=== PATIENT | male | born 1965 | race Asian ===

== ENCOUNTER 2024-05-07 23:04 | Emergency (ER) | payer BC, OTHER ==
[~2024-05-07] VITALS: Ht 182.9 cm; Wt 84.0 kg
[2024-05-07 23:09] VITALS: O2SAT 98
[2024-05-07 23:45] VITALS: BP 125/82; PULSE 82; RESP 16; TEMP 37.00296; O2SAT 99
== END 2024-05-08 00:51 | disposition home or self-care (01) ==
LOC: ER 23:04
DX: T51.0X1A Toxic effect of ethanol, accidental (unintentional), initial encounter (principal); F10.129 Alcohol abuse with intoxication, unspecified; R11.2 Nausea with vomiting, unspecified; X58.XXXA Exposure to other specified factors, initial encounter
CPT/HCPCS: 99283